=== PATIENT | male | born 1955 | race American Indian/Alaskan Native ===

== ENCOUNTER 2020-04-19 19:15 | Emergency (ER) | payer MEDICARE ==
[2020-04-19] MEDS ORDERED: SODIUM CHLORIDE 0.9% 1000 ML 1,000 ML IV ONE (20:29)
--- NOTE | 2020-04-19 20:30 | Emergency Department Report ---
ED Alcohol HPI - General Chief Complaint: Alcohol Stated Complaint: ETOH/VOMITING Time Seen by Provider: 04/19/20 20:10 Source: patient, EMS Mode of arrival: Stretcher Limitations: Altered Mental Status, Physical Limitation - History of Present Illness Initial Comments: Patient is a 65-year-old male who presents emergency room with EMS for alcohol intoxication. Patient was brought here for evaluation. EMS brought the patient. Report received from EMS. EMS states that the patient was due to intoxicated to walk and has urinated on himself. Patient is answering most questions appropriately. Patient denies pain. Patient states he is drinking al cohol. Patient states he smokes. Patient denies drug use. Patient denies physical complaints. Patient denies chest pain. Patient denies trauma. Patient denies recent travel. Patient denies recent international travel. Patient denies exposure to the novel coronavirus. Patient denies sick contacts. Patient denies fever and chills. Patient denies cough. Patient denies diarrhea. Patient denies coming in contact with anybody with symptoms of the novel coronavirus. MD Complaint: alcohol intoxication Last Drink: unknown Chronic Alcohol Use: Yes Previous Visits for Alcohol Intoxication?: Yes Recent Trauma: No - Related Data Allergies Allergy/AdvReac Type Severity Reaction Status Date / Time No Known Allergies Allergy Unverified 04/19/20 20:50 ED Review of Systems ROS: Stated complaint: ETOH/VOMITING Other details as noted in HPI Constitutional: denies: chills, fever Eyes: denies: eye pain, eye discharge, vision change ENT: denies: ear pain, throat pain Respiratory: denies: cough, shortness of breath, wheezing Cardiovascular: denies: chest pain, palpitations Endocrine: no symptoms reported Gastrointestinal: denies: abdominal pain, nausea, diarrhea Genitourinary: denies: urgency, dysuria Musculoskeletal: denies: back pain, joint swelling, arthralgia Skin: denies: rash, lesions Neurological: denies: headache, weakness, paresthesias Psychiatric: denies: anxiety, depression Hematological/Lymphatic: denies: easy bleeding, easy bruising ED Past Medical Hx - Past Medical History Previous Medical History?: Yes Hx Hypertension: Yes Hx Diabetes: Yes Hx of Cancer: Yes (unspecified) Additional medical history: HepC - Surgical History Past Surgical History?: No - Family History Family history: no significant - Social History Smoking Status: Never Smoker Substance Use Type: Alcohol ED Physical Exam - General Limitations: Altered Mental Status, Physical Limitation General appearance: alert, in no apparent distress - Head Head exam: Present: atraumatic, normocephalic - Eye Eye exam: Present: normal appearance, PERRL Pupils: Present: normal accommodation - ENT ENT exam: Present: mucous membranes moist - Neck Neck exam: Present: normal inspection - Respiratory Respiratory exam: Present: normal lung sounds bilaterally. Absent: respiratory distress, wheezes, rales - Cardiovascular Cardiovascular Exam: Present: regular rate, normal rhythm. Absent: systolic murmur, diastolic murmur, rubs, gallop - GI/Abdominal GI/Abdominal exam: Present: soft, normal bowel sounds. Absent: tenderness - Rectal Rectal exam: Present: deferred - Extremities Exam Extremities exam: Present: normal inspection - Back Exam Back exam: Present: normal inspection - Neurological Exam Neurological exam: Present: altered (Patient is alert and oriented x2. Patient is oriented to self and place. Patient is disoriented to time.) - Psychiatric Psychiatric exam: Present: normal affect, normal mood - Skin Skin exam: Present: warm, dry, intact, normal color. Absent: rash ED Course Vital Signs 04/19/20 04/20/20 04/20/20 20:46 02:00 08:28 Temperature 97.6 F 98.0 F 97.6 F Pulse Rate 85 88 84 Respiratory 18 16 20 Rate Blood Pressure 120/76 95/55 116/67 [Left] O2 Sat by Pulse 98 99 100 Oximetry - Reevaluation(s) Reevaluation #1: Patient CT negative. Patient more oriented. Patient answering more questions. 04/19/20 21:02 Reevaluation #2: Patient awake alert and tolerating p.o. intake. 04/20/20 00:03 Reevaluation #3: Patient signed out to oncoming physician, Dr. Mendosa for final disposition. Patient require reevaluation once the patient is legally sober. 04/20/20 05:47 ED Medical Decision Making - Lab Data Result diagrams: 04/19/20 20:41 04/19/20 20:41 - Radiology Data Radiology results: report reviewed CT HEAD WITHOUT CONTRAST INDICATION / CLINICAL INFORMATION: Altered mental status. Intoxicated patient. TECHNIQUE: All CT scans at this location are performed using CT dose reduction for ALARA by means of automated exposure control. COMPARISON: None available. FINDINGS: HEMORRHAGE: No evidence of intracranial hemorrhage or extra-axial fluid collection. EXTRA-AXIAL SPACES: Cortical sulci and sylvian fissures are dilated reflecting a degree of parenchymal volume loss which is somewhat greater than expected for the patient's age of 65 years. Basilar cisterns have an unremarkable appearance. VENTRICULAR SYSTEM: Third and lateral ventricles are at the upper limit of normal for size. Note is made of persistence of the cava septum pellucidum and cavum therapy. CEREBRAL PARENCHYMA: No significant areas of abnormal brain parenchymal attenuation are identified. Incidental note is made of a bilaterally symmetrical physiological calcification in the basal ganglia. MIDLINE SHIFT OR HERNIATION: There is no mass effect. CEREBELLUM / BRAINSTEM: Brainstem has an unremarkable appearance. Age related cerebellar atrophy is noted. MIDLINE STRUCTURES:Pituitary gland has an unremarkable appearance. No ab normalities are seen in the pineal region. INTRACRANIAL VESSELS:Calcified atherosclerotic plaque is present along the course of the cavernous segments of both internal carotid arteries. ORBITS: Patient is status post bilateral cataract surgery. Orbits have an otherwise unremarkable appearance. SOFT TISSUES of HEAD: No significant abnormality. CALVARIUM: Evaluation of bone windows reveals no abnormalities. PARANASAL SINUSES / MASTOID AIR CELLS: Small retention cysts or polyps are identified in the right sphenoid sinus. Paranasal sinuses otherwise appear clear. ADDITIONAL FINDINGS: Evaluation of the visualized facial bones reveals evidence of a depressed fracture of the right zygomatic arch and fracture, healed with deformity, of the lateral wall of the right maxillary sinus. Correlation with history of facial injury is suggested. IMPRESSION: 1. Mild parenchymal volume loss. 2. No acute intracranial abnormality. - Medical Decision Making Patient is a 65-year-old male who presents emergency room with altered mental status and acute alcohol intoxication. Patient given fluids and a banana bag. Patient had labs done which were essentially unremarkable except elevated blood alcohol and LFTs. Patient monitored for multiple hours in the ER until the patient became legally sober. Patient was then discharged. - Differential Diagnosis Acute alcohol intoxication, altered mental status Critical care attestation.: If time is entered above; I have spent that time in minutes in the direct care of this critically ill patient, excluding procedure time. ED Disposition Clinical Impression: Abnormal LFTs Altered mental state Qualifiers: Altered mental status type: unspecified Qualified Code(s): R41.82 - Altered mental status, unspecified Acute alcohol intoxication Qualifiers: Complication of substance-induced condition: with unspecified complication Qualified Code(s): F10.929 - Alcohol use, unspecified with intoxication, unspecified Disposition: DC-01 TO HOME OR SELFCARE Is pt being admited?: No Does the pt Need Aspirin: No Condition: Stable Instructions: Abuse of Alcohol (ED), At-Risk Alcohol Use (ED), Alcohol Withdrawal (ED) Additional Instructions: Patient to follow-up with primary care in 2 to 3 days. Patient to follow-up with rehab in 2 to 3 days. Patient to rest. Patient to increase water. Patient to decrease alcohol intake. Patient to take Tylenol or ibuprofen as needed for pain. Patient to return to the ER if condition worsens, changes or new symptoms arise. Referrals: PRIMARY CARE,MD [Primary Care Provider] - 2-3 Days Time of Disposition: 06:00
[2020-04-19 20:57] LABS: Hematocrit 37.4 % (35.5-45.6); Hemoglobin 12.5 gm/dl (11.8-15.2); Mean Corpuscular HGB Conc 33 % (32-34); Mean Corpuscular Volume 96 fl (84-94); Platelet Count 152 K/mm3 (140-440); Red Blood Count 3.92 M/mm3 (3.65-5.03)
[2020-04-19 21:19] LABS: Alanine Aminotransferase 98 units/L (7-56); BUN/Creatinine Ratio 22; Blood Urea Nitrogen 24 mg/dL (9-20); Calcium 10.2 mg/dL (8.4-10.2); Hemolysis Index 52
--- NOTE | 2020-04-19 21:35 | Cat Scan Report ---
CT HEAD WITHOUT CONTRAST INDICATION / CLINICAL INFORMATION: Altered mental status. Intoxicated patient. TECHNIQUE: All CT scans at this location are performed using CT dose reduction for ALARA by means of automated e xposure control. COMPARISON: None available. FINDINGS: HEMORRHAGE: No evidence of intracranial hemorrhage or extra-axial fluid collection. EXTRA-AXIAL SPACES: Cortical sulci and sylvian fissures are dilated reflecting a degree of parenchyma l volume loss which is somewhat greater than expected for the patient's age of 65 years. Basilar cist erns have an unremarkable appearance. VENTRICULAR SYSTEM: Third and lateral ventricles are at the upper limit of normal for size. Note is m daljit of persistence of the cava septum pellucidum and cavum therapy. CEREBRAL PARENCHYMA: No significant areas of abnormal brain parenchymal attenuation are identified. I ncidental note is made of a bilaterally symmetrical physiological calcification in the basal ganglia. MIDLINE SHIFT OR HERNIATION: There is no mass effect. CEREBELLUM / BRAINSTEM: Brainstem has an unremarkable appearance. Age related cerebellar atrophy is n oted. MIDLINE STRUCTURES:Pituitary gland has an unremarkable appearance. No abnormalities are seen in the p ineal region. INTRACRANIAL VESSELS:Calcified atherosclerotic plaque is present along the course of the cavernous se gments of both internal carotid arteries. ORBITS: Patient is status post bilateral cataract surgery. Orbits have an otherwise unremarkable appe arance. SOFT TISSUES of HEAD: No significant abnormality. CALVARIUM: Evaluation of bone windows reveals no abnormalities. PARANASAL SINUSES / MASTOID AIR CELLS: Small retention cysts or polyps are identified in the right sp henoid sinus. Paranasal sinuses otherwise appear clear. ADDITIONAL FINDINGS: Evaluation of the visualized facial bones reveals evidence of a depressed fractu re of the right zygomatic arch and fracture, healed with deformity, of the lateral wall of the right maxillary sinus. Correlation with history of facial injury is suggested. IMPRESSION: 1. Mild parenchymal volume loss. 2. No acute intracranial abnormality. Signer Name: Kamar Dwons MD Signed: 04/19/2020 9:30 PM Workstation Name: [id number]
[2020-04-19 21:41] LABS: Total Cells Counted 100
[2020-04-19 21:42] LABS: Anisocytosis Few; Hypochromasia 1+; Target Cells Few
[2020-04-19 22:34] LABS: Bilirubin,Urine NEG (Negative); Blood,Urine SM (Negative); Color,Urine Straw (Yellow); Mucus,Urine FEW /HPF; Protein,Urine <15 mg/dL mg/dL (Negative); RBC,Urine < 1.0 /HPF (0.0-6.0); Urobilinogen,Urine < 2.0 mg/dL (<2.0); WBC,Urine < 1.0 /HPF (0.0-6.0)
[2020-04-19 22:40] LABS: Amphetamine Screen,Urine PRESUMPTIVE NEGATIVE; Benzodiazepines Screen,Urine PRESUMPTIVE NEGATIVE; Cannabinoid Screen,Urine PRESUMPTIVE NEGATIVE; Cocaine Screen,Urine PRESUMPTIVE NEGATIVE; Methadone Screen,Urine PRESUMPTIVE NEGATIVE; Opiate Screen,Urine PRESUMPTIVE NEGATIVE
[2020-04-19] MEDS ORDERED: ZIPRASIDONE MESYLATE 20 MG VIAL IM ONE (23:47)
[2020-04-20] MEDS ORDERED: THIAMINE 100 MG, FOLIC ACID 1 MG, MULTIPLE VITAMIN INJ, ADULT 10 ML in SODIUM CHLORIDE ... IV ONE (00:24)
[2020-04-20 08:30] VITALS: BP 116/67
== END 2020-04-20 19:30 | disposition home or self-care (01) ==
LOC: ED 19:15
DX: F10.129 Alcohol abuse with intoxication, unspecified (principal); R41.82 Altered mental status, unspecified; R94.5 Abnormal results of liver function studies; I10 Essential (primary) hypertension; E11.9 Type 2 diabetes mellitus without complications; Z85.9 Personal history of malignant neoplasm, unspecified
CPT/HCPCS: 36415; 70450; 80053; 80307; 81001; 85007; 85025; 96361; 96365; 96366; 99285; J3411; J7030; 80320; G0480